=== PATIENT | female | born 1990 | race Caucasian/White ===

== ENCOUNTER 2018-12-25 12:25 | Inpatient (IN) | payer BC ==
[2018-12-25] MEDS ORDERED: LACTATED RINGER'S 1,000 ML IV (12:34)
[2018-12-25] MEDS ORDERED: MISOPROSTOL 200 MCG TAB PR ×2 (13:00→22:00)
[2018-12-25] MEDS ORDERED: CARBOPROST 250 MCG INJ IM ×2 (13:00→22:00)
[2018-12-25] MEDS ORDERED: LIDOCAINE 1% (MPF) 30 ML INJ INJ (13:00)
[2018-12-25] MEDS ORDERED: OXYTOCIN 30 UNITS/LR 500 ML IV ×2 (13:00→22:00)
[2018-12-25 13:17] LABS: ADD MAN DIFF? NO
[2018-12-25 13:21] LABS: BASOPHILS % 0.3 % (0.0-2.0); EOSINOPHILS % 0.3 % (0.0-7.0); HEMATOCRIT 40.3 % (37.0-47.0); HEMOGLOBIN 13.7 g/dl (12.0-16.0); LYMPHOCYTES # 2.1 10^3/ul (0.8-2.9); LYMPHOCYTES % 17.9 % (15.0-51.0); MEAN CORPUSCULAR VOLUME 85.2 fl (82.0-101.0); MEAN PLATELET VOLUME 9.2 fl (7.4-10.4); MONOCYTE # 0.5 10^3/ul (0.3-0.9); MONOCYTES % 3.9 % (0.0-11.0); NEUTROPHILS % 76.7 % (39.0-77.0); PLATELET COUNT 308 10^3/UL (140-415); RED BLOOD COUNT 4.73 10^6/ul (4.20-5.40); RED CELL DISTRIBUTION WIDTH 12.9 % (11.5-14.5)
[2018-12-25 13:21] LABS: WHITE BLOOD COUNT 11.7 10^3/ul (4.8-10.8)
[2018-12-25 13:40] LABS: INR 0.89; PROTIME 12.2 Sec (11.9-14.9)
[2018-12-25 13:41] LABS: PARTIAL THROMBOPLASTIN TIME 26.4 Sec (23.0-35.0)
[2018-12-25] MEDS: LACTATED RINGER'S 1,000 ML IV ×2 (15:20→18:18)
[2018-12-25] MEDS: OXYTOCIN 30 UNITS/LR 500 ML IV ×4 (15:23→22:26)
[2018-12-25] MEDS ORDERED: NALOXONE (0.4 MG/ML) INJ IV (17:30)
[2018-12-25] MEDS ORDERED: DIPHENHYDRAMINE 50 MG INJ IV (17:30)
[2018-12-25] MEDS ORDERED: ONDANSETRON 4 MG INJ IV ×2 (17:30→22:00)
[2018-12-25] MEDS ORDERED: ROPIVACAINE 0.2% 100ML BAG EPI (17:30)
[2018-12-25] MEDS ORDERED: FENTAnyl 2MCG/ML-ROPIV 0.2% 100 ML (17:38)
[2018-12-25] MEDS ORDERED: FENTAnyl 2MCG/ML-ROPIV 0.2% 100 ML BAG EPI (19:00)
[2018-12-25] MEDS: METHYLERGONOVINE 0.2 MG INJ IM (20:53)
[2018-12-25 21:10] LABS: RAPID PLASMA REAGIN NONREACTIVE (NR)
[2018-12-25] MEDS: IBUPROFEN 600 MG TAB PO (21:47)
[2018-12-25] MEDS ORDERED: METHYLERGONOVINE 0.2 MG INJ IM (22:00)
[2018-12-25] MEDS ORDERED: NACL 0.9% 3 ML SYG IV (22:00)
[2018-12-25] MEDS ORDERED: OXYCODONE/ASPIRIN (4.88/325) TAB PO ×2 (22:00)
[2018-12-26] MEDS ORDERED: ROPIVACAINE 0.2% 100ML BAG EPI
[2018-12-26] MEDS: BENZOCAINE 20% 56 ML SPRAY TOP (00:01)
[2018-12-26] MEDS: LANOLIN HPA 1 PKT TOP (00:01)
[2018-12-26] MEDS: WITCH HAZEL/GLYCERIN PAD PR (00:01)
[2018-12-26] MEDS: IBUPROFEN 600 MG TAB PO ×5 (05:40→23:39)
[2018-12-26 08:56] LABS: HEMATOCRIT 37.6 % (37.0-47.0); HEMOGLOBIN 12.6 g/dl (12.0-16.0)
[2018-12-26] MEDS: SENNA/DOCUSATE NA (8.6MG/50MG) TAB PO ×2 (09:40→23:37)
[2018-12-26] MEDS: MEASLES,MUMPS,RUBELLA VACCINE INJ SC* (18:17)
[2018-12-27] MEDS: IBUPROFEN 600 MG TAB PO ×2 (05:36→11:24)
[2018-12-27] MEDS: SENNA/DOCUSATE NA (8.6MG/50MG) TAB PO (08:52)
[2018-12-27] MEDS: DIPHTH/TET/ACEL PERTUSS (ADULT) 0.5 ML VIAL IM* (08:52)
[2018-12-27] MEDS: BENZOCAINE 20% 56 ML SPRAY TOP (11:23)
[2018-12-27] MEDS: LANOLIN HPA 1 PKT TOP (11:24)
[2018-12-27] MEDS: WITCH HAZEL/GLYCERIN PAD PR (11:24)
== END 2018-12-27 13:00 | disposition home or self-care (01) | DRG 807 ==
LOC: L-D 12:25 → PP1 22:37
PROVIDERS: Obstetrics & Gynecology
PROC: 10D07Z6 Extraction of Products of Conception, Vacuum, Via Natural or Artificial Opening (ICD-10-PCS; principal; 2018-12-25)
PROC: 0W8NXZZ Division of Female Perineum, External Approach (ICD-10-PCS; 2018-12-25)
PROC: 3E033VJ Introduction of Other Hormone into Peripheral Vein, Percutaneous Approach (ICD-10-PCS; 2018-12-25)
DX: O41.03X0 Oligohydramnios, third trimester, not applicable or unspecified (principal); Z37.0 Single live birth; Z3A.39 39 weeks gestation of pregnancy; O69.81X0 Labor and delivery complicated by cord around neck, without compression, not applicable or unspecified
CPT/HCPCS: 62319; 85014; 85018; 85025; 85610; 85730; 86592; 86850; 86900; 86901; 90715; 99464